=== PATIENT | female | born 1985 | race Caucasian/White ===

== ENCOUNTER 2023-06-08 15:17 | Outpatient (CLI) | payer OTHER, SELFPAY ==
--- NOTE | 2023-06-08 15:30 | MR_ITS ---
[facility] [address] [facility] [address] Phone:?[phone] Fax:?[phone] Referring Physician Information: Darryn Duffy M.D. [address] [place] [id number] Phone:?[phone] Fax:?[phone] Patient:?Jocelin genao D.O.B:?1985 Sex:?Female Phone:?[phone] [facility] MRN:?[id number] Exam Date:?06/08/2023 EXAM: MRI EXAMINATION OF THE RIGHT WRIST WITHOUT CONTRAST CLINICAL INFORMATION: Female, 38 years old, with right wrist pain. INDICATION: Evaluate wrist pain. PRIOR SURGERY: None reported. PLAIN FILMS: None available. COMPARISONS: No prior MRIs available. TECHNICAL INFORMATION: Using a 1.5T MR scanner and a localizing surface coil: coronals: T1, PDFS sagittals: PDFS, T2 axials: PD, PDFS SEDATION: None CONTRAST: None FINDINGS: Bones and joints: No stress/occult fracture, bone marrow edema, or carpal bone osteonecrosis. No discrete osteochondral lesion. No significant effusion in the distal radioulnar, radiocarpal, midcarpal, or carpometacarpal joint spaces. Triangular fibrocartilage: Fraying and irregularity of the foveal and ulnar styloid process attachments is present (coronal PDFS series 5 images 6-9). The central disc and radial attachments are unremarkable. Ligaments: No evidence for scapholunate or lunotriquetral interosseous ligament disruption. Interosseous distances between the scaphoid, lunate and triquetrum appear uniform and normal. Alignment:?Type II lunate. The capitolunate angle measures 12? (<30? normal). The scapholunate angle measures 51? (30?-60? normal). Ulnar variance is neutral. Tendons: The flexor tendons are normal in caliber and signal intensity throughout their course including within the carpal tunnel. The tendons within the 1st-6th extensor compartments are intact. No significant tendinopathy, and without tenosynovitis, tendon split or tendon disruption. Neurovascular structures: The median nerve appears normal in caliber and signal intensity throughout its course including within the carpal tunnel. The ulnar nerve is intact and normal in appearance. No evidence for intrinsic/extrinsic mass within Guyon's canal. Soft tissues: Approximately 1.1 x 0.8 x 0.5 cm dorsal ganglion cyst arising from the midcarpal row (sagittal PDFS series 7 image 9, coronal PDFS series 5 image 4, and axial PDFS series 4 image 11). IMPRESSION: 1. Approximately 1.1 x 0.8 x 0.5 cm dorsal ganglion cyst arising from the midcarpal row. 2. Chronic low-grade sprain of the foveal and ulnar styloid attachments of the TFCC, without tear. 3. No fracture or osseous stress fracture. 4. No ligamentous sprain/tear. 5. No flexor/extensor tendinopathy or tear. 6. No chondromalacia, osteochondral lesion, or pathologic joint effusion. BC Electronically signed on 06/08/2023 10:29:00 PM by Rogelio Rebolledo M.D.
== END 2023-06-08 15:18 | disposition home or self-care (01) ==
LOC: MRI 15:17
PROVIDERS: PCP Nurse Practitioner Family; Visit Provider Orthopaedic Surgery
DX: M25.531 Pain in right wrist (principal); S63.591A Other specified sprain of right wrist, initial encounter
CPT/HCPCS: 73221

== ENCOUNTER 2024-04-17 09:10 | Day surgery (SDC) | payer BC, SELFPAY ==
[2024-04-17] VITALS (12 sets, daily range): BP systolic 91–106; BP diastolic 58–70; PULSE 61–75; RESP 14–16; TEMP 36.2–36.6; O2SAT 99–100; BMI 20.7
[2024-04-17] MEDS: SODIUM CHLORIDE 0.9 % (FLUSH) 10 ML SYRINGE IVF (09:20)
[2024-04-17] MEDS: LACTATED RINGERS 1000 ML 1,000 ML 100 ML IV (09:20)
--- NOTE | 2024-04-17 11:08 | W.ANESCHARGE ---
Anesthesia Charges Start Date/Time Anesthesia Start Date: 04/17/24 Anesthesia Start Time: 10:42 Stop Date/Time Anesthesia Stop Date: 04/17/24 Anesthesia Stop Time: 11:56
--- NOTE | 2024-04-17 11:38 | W.ANESCHARGE ---
Anesthesia Charges Start Date/Time Anesthesia Start Date: 04/17/24 Anesthesia Start Time: 09:19 Stop Date/Time Anesthesia Stop Date: 04/17/24 Anesthesia Stop Time: 11:25
[2024-04-17] MEDS: BUPIVACAINE 0.25% 30 ML INJECTION (11:41)
--- NOTE | 2024-04-17 11:55 | W.ANESCHARGE ---
Anesthesia Charges Start Date/Time Anesthesia Start Date: 04/17/24 Anesthesia Start Time: 10:42 Stop Date/Time Anesthesia Stop Date: 04/17/24 Anesthesia Stop Time: 11:56
--- NOTE | 2024-04-17 12:17 | PM.ORPRC ---
Procedure Note Date of procedure: 04/17/24 Procedure: PREOPERATIVE DIAGNOSIS: Left knee medial meniscus tear POSTOPERATIVE DIAGNOSIS: Left knee medial meniscus tear NAME OF OPERATION: Left knee arthroscopic partial medial meniscectomy SURGEON: Darryn Duffy MD PROJECTOR BOOTH OPERATOR: ALFONSO Chiang ANESTHESIA: Spinal ESTIMATED BLOOD LOSS: 0 mL COMPLICATIONS: None SPECIMENS: None DRAINS: None PREOPERATIVE ANTIBIOTICS: Ancef 1 gram INDICATIONS: The patient is a 38-year-old with a history of left knee medial pain. MRI scan is consistent with a medial meniscus tear. Despite appropriate nonoperative management, including activity modification, antiinflammatories, [id number] pain medication, bracing, physical therapy, and injections they continue to have pain and disability. Operative intervention was offered. The risks, benefits and expected outcomes were discussed in detail. These included but were not limited to: Infection, bleeding, injury to blood vessel or nerve, venous thromboembolism. All questions were answered to their satisfaction. PROCEDURE: Spinal anesthesia was administered. The patient was placed supine on the operating room table. The left lower extremity was prepped and draped in the usual sterile fashion. The limb was exsanguinated with the Jorge bandage. The pneumatic tourniquet was inflated to 300 mmHg. A standard anterolateral portal was established. The arthroscope was introduced. The working portal was established anteromedially. Diagnostic arthroscopy was performed with findings as follows: The suprapatellar pouch is normal. Articular surface on the patella is normal. Articular surface on the trochlea is normal. The medial gutter is normal. The medial compartment shows normal articular cartilage on the medial femoral condyle and medial tibial plateau. The medial meniscus has a degenerative horizontal cleavage tear of the posterior horn, from the leading edge to the capsule. The notch shows the ACL to be intact. The lateral compartment shows normal articular cartilage on the lateral femoral condyle and lateral tibial plateau. The lateral meniscus is normal. The lateral gutter is normal. The leading edge of the posterior horn was debrided with the shaver and basket. This opened up the horizontal cleavage tear further. Some of each of the superior and inferior leaflets were resected with the basket and shaver. The degenerative tissue between was resected with the shaver, nearly to the capsule. Arthroscopic instruments were removed, the portal sites were Steri-Stripped closed, the knee was infiltrated with 30 mL of 0.25% Marcaine without epinephrine. A dry dressing was applied, the tourniquet was released. Sponge and needle counts were correct x 2. The patient tolerated the procedure well. There were no apparent complications. They were carefully transferred to the hospital bed and taken to the postanesthesia care unit in satisfactory condition. PLAN: The patient will be discharged to home. They may weightbear as tolerates. Range of motion will be unrestricted. They will follow up in the office next week for a wound check.
--- NOTE | 2024-04-17 13:46 | SUR.PHASEII ---
unable to urinate. scanned bladder for over 500cc. pt attempting again to urinate. if unable i will straight cath her
== END 2024-04-17 13:57 | disposition home or self-care (01) ==
PROVIDERS: PCP Nurse Practitioner Family; Visit Provider Orthopaedic Surgery
PROC: (CPT 29870; principal; 2024-04-17 10:45)
DX: M23.222 Derangement of posterior horn of medial meniscus due to old tear or injury, left knee (principal)
CPT/HCPCS: 29881; 01400; J0665; J1100; J2250; J2405; J2704; J3010; J7120

== ENCOUNTER 2024-10-31 14:46 | Outpatient (CLI) | payer BC, SELFPAY ==
--- NOTE | 2024-10-31 15:00 | CRLHL7_ITS ---
For Patients: As a result of the Century Cures Act, medical imaging exams and procedure reports are released immediately into your electronic medical record. You may view this report before your referring provider. If you have questions, please contact your health care provider. CLINICAL HISTORY: Localized lump Technique: Soft tissue Ultrasound with grayscale and color Doppler. FINDINGS/IMPRESSION: Normal inguinal node in the left groin. Dictated by Asuncion Yanez MD @ 11/03/2024 7:37:43 AM (Electronically Signed)
== END 2024-10-31 14:47 | disposition home or self-care (01) ==
LOC: US 14:47
PROVIDERS: PCP Nurse Practitioner Family; Visit Provider Nurse Practitioner Family
DX: R19.00 Intra-abdominal and pelvic swelling, mass and lump, unspecified site (principal)
CPT/HCPCS: 76857